=== PATIENT | female | born 2000 | race Caucasian/White ===

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

== ENCOUNTER → 2024-05-18 | Outpatient (CLI) | payer BC | LOC: LAB 10:45 → LAB SHORT 10:45 | DX: R30.0 Dysuria (principal) | CPT/HCPCS: 87077; 87086; 87186 ==